=== PATIENT | female | born 1950 | race Caucasian/White ===

== ENCOUNTER 2020-03-09 20:56 | Inpatient (IN) | payer MEDICARE, MEDICAID ==
[~2020-03-09] VITALS: Ht 160 cm; Wt 68.0 kg
[2020-03-09] MEDS ORDERED: MAGNESIUM/ALUMINUM HYDROXIDE/SIMETHICONE 30ML UDC PO STA (21:56)
[2020-03-09] MEDS ORDERED: FAMOTIDINE 20MG/2ML VIAL IV STA (21:56)
[2020-03-09] MEDS ORDERED: VISCOUS LIDOCAINE 2% 15 ML UDC PO STA (21:56)
[2020-03-09] MEDS ORDERED: SODIUM CHLORIDE 0.9% 250 ML IV ONE (21:56)
[2020-03-09 22:44] LABS: BASOPHILS % 0.6 % (0.0-2.0); EOSINOPHILS % 1.3 % (0.0-5.0); HEMATOCRIT. 36.1 % (36.0-48.0); HEMOGLOBIN. 12.4 g/dL (12.0-16.0); LYMPHOCYTES % 21.5 % (20.0-50.0); MEAN CORPUSCULAR HEMOGLOBIN 31.5 pg (28.0-32.0); MEAN CORPUSCULAR VOLUME 91.6 fL (81.0-99.0); MEAN PLATELET VOLUME 7.9 fl (7.4-10.4); MONOCYTES % 5.8 % (2.0-8.0); NEUTROPHILS % 70.8 % (40.0-76.0); PLATELET 275 x1000/uL (130-400); RED BLOOD CELL COUNT 3.94 mill/uL (4.2-5.4); RED CELL DISTRIBUTION WIDTH 13.3 % (11.6-14.6)
[2020-03-09 22:52] LABS: CHLORIDE 99 mEq/L (98-107)
[2020-03-09 22:54] LABS: PROTHROMBIN TIME 10.4 sec (9.6-11.0)
[2020-03-09 22:58] LABS: CLARITY URINE CLEAR (CLEAR); COLOR URINE YELLOW (YELLOW); KETONES URINE NEGATIVE (NEGATIVE); LEUKOCYTE ESTERASE URINE 1+ (NEGATIVE); NITRITE URINE NEGATIVE (NEGATIVE); OCCULT BLOOD URINE NEGATIVE (NEGATIVE); PH URINE 7.5 (4.5-8.0); PROTEIN URINE NEGATIVE (NEGATIVE); SPECIFIC GRAVITY URINE 1.005 (1.005-1.030); UROBILINOGEN URINE 0.2 E.U./dL (0.2-1.0)
[2020-03-09] MEDS ORDERED: CEFTRIAXONE 1 G PREMIX 50 ML IV ONE (23:45)
[2020-03-10 08:40] VITALS: BP 142/68
[2020-03-10] MEDS ORDERED: ONDANSETRON HCL 4MG/2ML INJ IV PRN (09:15)
[2020-03-10] MEDS ORDERED: POTASSIUM CHLORIDE 20MEQ TABLET SR PO SCH (09:15)
[2020-03-10] MEDS: OMEPRAZOLE 20MG CAPSULE EXTENDED RELEASE PO SCH (10:14)
[2020-03-10 12:48] LABS: LDL CHOLESTEROL 52 mg/dL (5-100)
[2020-03-10 12:49] LABS: HDL CHOLESTEROL 70 mg/dL (40-59)
[2020-03-10] MEDS ORDERED: CLONIDINE 0.1MG TABLET PO PRN (13:00)
[2020-03-10] MEDS ORDERED: METF-416 PO (14:31)
[2020-03-10] MEDS: ACETAMINOPHEN 325MG TABLET PO PRN (16:20)
[2020-03-10 20:00] VITALS: BP 129/71
[2020-03-10 21:45] LABS: CLARITY URINE CLEAR (CLEAR); COLOR URINE YELLOW (YELLOW); KETONES URINE NEGATIVE (NEGATIVE); LEUKOCYTE ESTERASE URINE TRACE (NEGATIVE); NITRITE URINE NEGATIVE (NEGATIVE); OCCULT BLOOD URINE NEGATIVE (NEGATIVE); PH URINE 8.5 (4.5-8.0); PROTEIN URINE NEGATIVE (NEGATIVE); SPECIFIC GRAVITY URINE 1.008 (1.005-1.030); UROBILINOGEN URINE 0.2 E.U./dL (0.2-1.0)
[2020-03-11] VITALS: BP 139/63
[2020-03-11 04:00] VITALS: BP 122/59
[2020-03-11] MEDS: OMEPRAZOLE 20MG CAPSULE EXTENDED RELEASE PO SCH (06:27)
[2020-03-11 06:47] LABS: BASOPHILS % 0.9 % (0.0-2.0); EOSINOPHILS % 2.4 % (0.0-5.0); HEMATOCRIT. 37.1 % (36.0-48.0); LYMPHOCYTES % 22.9 % (20.0-50.0); MEAN CORPUSCULAR HEMOGLOBIN 32.3 pg (28.0-32.0); MEAN PLATELET VOLUME 8.2 fl (7.4-10.4); MONOCYTES % 6.9 % (2.0-8.0); NEUTROPHILS % 66.9 % (40.0-76.0); PLATELET 276 x1000/uL (130-400); RED BLOOD CELL COUNT 4.03 mill/uL (4.2-5.4); RED CELL DISTRIBUTION WIDTH 13.1 % (11.6-14.6)
[2020-03-11 07:23] LABS: CHLORIDE 105 mEq/L (98-107)
[2020-03-11 08:00] VITALS: BP 133/62
[2020-03-11 12:00] VITALS: BP 157/83
[2020-03-11] MEDS ORDERED: CEFTRIAXONE 1 G PREMIX 50 ML IV SCH ×2 (14:00→18:00)
[2020-03-11 16:00] VITALS: BP_SYST 169; BP_SYST 179; BP_SYST 196; BP_DIAS 79; BP_DIAS 91; BP_DIAS 95
[2020-03-11] MEDS: ACETAMINOPHEN 325MG TABLET PO PRN (17:44)
[2020-03-11 20:00] VITALS: BP_SYST 156; BP_SYST 168; BP_SYST 171; BP_DIAS 67; BP_DIAS 81; BP_DIAS 82
[2020-03-12] VITALS: BP 140/71
[2020-03-12 04:00] VITALS: BP 133/61
[2020-03-12 06:30] LABS: BASOPHILS % 0.7 % (0.0-2.0); EOSINOPHILS % 2.4 % (0.0-5.0); HEMATOCRIT. 38.7 % (36.0-48.0); HEMOGLOBIN. 13.1 g/dL (12.0-16.0); LYMPHOCYTES % 34.1 % (20.0-50.0); MEAN CORPUSCULAR HEMOGLOBIN 31.4 pg (28.0-32.0); MEAN CORPUSCULAR VOLUME 92.6 fL (81.0-99.0); MEAN PLATELET VOLUME 8.5 fl (7.4-10.4); NEUTROPHILS % 55.8 % (40.0-76.0); PLATELET 290 x1000/uL (130-400); RED BLOOD CELL COUNT 4.17 mill/uL (4.2-5.4)
[2020-03-12 06:35] LABS: CHLORIDE 105 mEq/L (98-107)
[2020-03-12 08:00] VITALS: BP 144/56
[2020-03-12] MEDS ORDERED: FAMOTIDINE 20MG TABLET PO SCH (09:00)
[2020-03-12] MEDS ORDERED: AMLO5TAB88 MT (11:09)
[2020-03-12] MEDS ORDERED: LEVO500T2 MT (11:09)
[2020-03-12] MEDS ORDERED: FAMO-135 MT (11:09)
[2020-03-12 12:00] VITALS: BP 145/60
[2020-03-12 12:41] VITALS: BP 146/60
== END 2020-03-12 15:25 | disposition home or self-care (01) | DRG 445 ==
LOC: ER 20:56 → MICUSO 23:45 → 6WST 03-10 08:45
PROVIDERS: ADMIT Internal Medicine; ATTEND Internal Medicine
DX: K80.20 Calculus of gallbladder without cholecystitis without obstruction (principal); N39.0 Urinary tract infection, site not specified; E87.1 Hypo-osmolality and hyponatremia; K21.9 Gastro-esophageal reflux disease without esophagitis; E11.9 Type 2 diabetes mellitus without complications; G90.8 Other disorders of autonomic nervous system; E87.6 Hypokalemia; I10 Essential (primary) hypertension
CPT/HCPCS: 36415; 71045; 76705; 80048; 80053; 80061; 81003; 82962; 83880; 84443; 84484; 85025; 93005; 93306; 96374; 99285; J0696; J3490; J7030

== ENCOUNTER 2020-03-19 10:29 | Emergency (ER) | payer MEDICARE, MEDICAID ==
[~2020-03-19] VITALS: Ht 152.4 cm; Wt 55.0 kg
[~2020-03-19 10:29] MED LIST: AMLO5TAB88 MT; FAMO-135 MT; LEVO500T2 MT; METF-416 PO
[2020-03-19] MEDS ORDERED: MAGNESIUM/ALUMINUM HYDROXIDE/SIMETHICONE 30ML UDC PO STA (10:53)
[2020-03-19] MEDS ORDERED: ACETAMINOPHEN 325MG TABLET PO STA (10:53)
[2020-03-19] MEDS ORDERED: FAMOTIDINE 20MG/2ML VIAL IV STA (10:53)
[2020-03-19 11:01] LABS: BASOPHILS % 0.6 % (0.0-2.0); EOSINOPHILS % 0.6 % (0.0-5.0); HEMATOCRIT. 40.1 % (36.0-48.0); HEMOGLOBIN. 14.1 g/dL (12.0-16.0); LYMPHOCYTES % 18.8 % (20.0-50.0); MEAN CORPUSCULAR HEMOGLOBIN 32.1 pg (28.0-32.0); MEAN CORPUSCULAR VOLUME 91.4 fL (81.0-99.0); MEAN PLATELET VOLUME 7.7 fl (7.4-10.4); MONOCYTES % 5.5 % (2.0-8.0); NEUTROPHILS % 74.5 % (40.0-76.0); PLATELET 374 x1000/uL (130-400); RED BLOOD CELL COUNT 4.39 mill/uL (4.2-5.4); RED CELL DISTRIBUTION WIDTH 13.1 % (11.6-14.6)
[2020-03-19 11:07] LABS: CHLORIDE 95 mEq/L (98-107)
[2020-03-19] MEDS ORDERED: IOHEXOL-300 100 ML BOTTLE ONE (11:46)
[2020-03-19] MEDS ORDERED: SODIUM CHLORIDE 0.9% 1,000 ML IV ONE (12:45)
[2020-03-19 14:10] VITALS: BP 140/67
[2020-03-19 14:34] LABS: CLARITY URINE CLEAR (CLEAR); COLOR URINE YELLOW (YELLOW); KETONES URINE NEGATIVE (NEGATIVE); LEUKOCYTE ESTERASE URINE NEGATIVE (NEGATIVE); NITRITE URINE NEGATIVE (NEGATIVE); OCCULT BLOOD URINE NEGATIVE (NEGATIVE); PROTEIN URINE NEGATIVE (NEGATIVE); SPECIFIC GRAVITY URINE 1.021 (1.005-1.030); UROBILINOGEN URINE 0.2 E.U./dL (0.2-1.0)
== END 2020-03-19 15:11 | disposition home or self-care (01) ==
LOC: ER 10:29
DX: R10.13 Epigastric pain (principal); E87.1 Hypo-osmolality and hyponatremia; E11.9 Type 2 diabetes mellitus without complications; I10 Essential (primary) hypertension; Z79.899 Other long term (current) drug therapy
CPT/HCPCS: 36415; 74177; 80053; 81003; 83690; 84484; 85025; 93005; 96361; 96374; 99285; J3490; J7030; Q9967

== ENCOUNTER 2022-05-25 15:07 | Emergency (ER) | payer MEDICARE, MEDICAID ==
[~2022-05-25] VITALS: Ht 162.6 cm; Wt 62.0 kg
[~2022-05-25 15:07] MED LIST changes: +ATOR10TA69 PO; +HYDR-4346 MT; -LEVO500T2 MT; +ONDA4TAB11 PO
[2022-05-25] MEDS ORDERED: LIDOCAINE HCL/EPINEPHRINE 1%-EPI 1:100,000 20 ML VIAL INFIL ONE (16:15)
[2022-05-25] MEDS ORDERED: SODIUM CHLORIDE 0.9% 1,000 ML IV ONE (16:15)
[2022-05-25] MEDS ORDERED: TETANUS, DIPHTHERIA, PERTUSSIS VAC/PF 0.5ML (>10YR OLD) IM ONE (16:15)
[2022-05-25 16:36] LABS: BASOPHILS % 0.3 % (0.0-2.0); EOSINOPHILS % 0.4 % (0.0-5.0); HEMATOCRIT. 32.3 % (36.0-48.0); HEMOGLOBIN. 10.8 g/dL (12.0-16.0); MEAN CORPUSCULAR HEMOGLOBIN 31.6 pg (28.0-32.0); MEAN CORPUSCULAR VOLUME 94.5 fL (81.0-99.0); MEAN PLATELET VOLUME 7.5 fl (7.4-10.4); MONOCYTES % 3.6 % (2.0-8.0); NEUTROPHILS % 86.7 % (40.0-76.0); PLATELET 321 x1000/uL (130-400); RED BLOOD CELL COUNT 3.42 mill/uL (4.2-5.4); RED CELL DISTRIBUTION WIDTH 13.3 % (11.6-14.6)
[2022-05-25 16:51] LABS: CHLORIDE 101 mEq/L (98-107)
[2022-05-25] MEDS ORDERED: IBUP-2028 MT (19:25)
[2022-05-25 21:40] VITALS: BP 130/67
== END 2022-05-25 21:40 | disposition home or self-care (01) ==
LOC: ER 15:07
DX: S01.01XA Laceration without foreign body of scalp, initial encounter (principal); E11.9 Type 2 diabetes mellitus without complications; I10 Essential (primary) hypertension; Z79.899 Other long term (current) drug therapy; W18.30XA Fall on same level, unspecified, initial encounter; Y93.89 Activity, other specified; Y92.89 Other specified places as the place of occurrence of the external cause; Y99.8 Other external cause status
CPT/HCPCS: 12002; 36415; 70450; 80053; 85025; 93005; 99285; J3490; J7030

== ENCOUNTER 2023-01-27 23:28 | Emergency (ER) | payer MEDICARE, MEDICAID ==
[~2023-01-27] VITALS: Ht 149.9 cm; Wt 62.3 kg
[~2023-01-27 23:28] MED LIST changes: +IBUP-2028 MT
[2023-01-28 01:42] LABS: BASOPHILS % 0.4 % (0.0-2.0); EOSINOPHILS % 0.2 % (0.0-5.0); HEMATOCRIT. 33.6 % (36.0-48.0); HEMOGLOBIN. 11.6 g/dL (12.0-16.0); LYMPHOCYTES % 14.8 % (20.0-50.0); MEAN CORPUSCULAR HEMOGLOBIN 31.4 pg (28.0-32.0); MEAN CORPUSCULAR VOLUME 90.4 fL (81.0-99.0); MEAN PLATELET VOLUME 7.4 fl (7.4-10.4); MONOCYTES % 4.4 % (2.0-8.0); NEUTROPHILS % 80.2 % (40.0-76.0); PLATELET 282 x1000/uL (130-400); RED BLOOD CELL COUNT 3.71 mill/uL (4.2-5.4)
[2023-01-28 01:51] LABS: CHLORIDE 98 mEq/L (98-107)
[2023-01-28] MEDS ORDERED: OMEP40CA20 MT (03:41)
[2023-01-28] MEDS ORDERED: IBUP-2028 MT (03:41)
[2023-01-28 04:00] VITALS: BP 141/65
== END 2023-01-28 04:12 | disposition home or self-care (01) ==
LOC: ER 23:28
DX: K80.50 Calculus of bile duct without cholangitis or cholecystitis without obstruction (principal); E11.9 Type 2 diabetes mellitus without complications; I10 Essential (primary) hypertension; Z98.890 Other specified postprocedural states
CPT/HCPCS: 36415; 71045; 76705; 80053; 83605; 85025; 93005; 99285

== ENCOUNTER 2023-03-23 20:43 | Emergency (ER) | payer MEDICARE, MEDICAID ==
[~2023-03-23] VITALS: Ht 149.9 cm; Wt 58.8 kg
[~2023-03-23 20:43] MED LIST changes: +OMEP40CA20 MT
[2023-03-23 21:24] LABS: BASOPHILS % 0.4 % (0.0-2.0); EOSINOPHILS % 0.8 % (0.0-5.0); HEMATOCRIT. 35.3 % (36.0-48.0); HEMOGLOBIN. 12.2 g/dL (12.0-16.0); LYMPHOCYTES % 31.4 % (20.0-50.0); MEAN CORPUSCULAR HEMOGLOBIN 31.6 pg (28.0-32.0); MEAN CORPUSCULAR VOLUME 91.6 fL (81.0-99.0); MEAN PLATELET VOLUME 7.6 fl (7.4-10.4); MONOCYTES % 9.5 % (2.0-8.0); NEUTROPHILS % 57.9 % (40.0-76.0); PLATELET 306 x1000/uL (130-400); RED BLOOD CELL COUNT 3.86 mill/uL (4.2-5.4); RED CELL DISTRIBUTION WIDTH 13.4 % (11.6-14.6)
[2023-03-23 21:46] LABS: CHLORIDE 97 mEq/L (98-107)
[2023-03-23 22:10] LABS: CLARITY URINE CLEAR (CLEAR); COLOR URINE YELLOW (YELLOW); KETONES URINE NEGATIVE (NEGATIVE); LEUKOCYTE ESTERASE URINE 1+ (NEGATIVE); NITRITE URINE NEGATIVE (NEGATIVE); OCCULT BLOOD URINE NEGATIVE (NEGATIVE); PH URINE 5.5 (4.5-8.0); PROTEIN URINE NEGATIVE (NEGATIVE); SPECIFIC GRAVITY URINE 1.015 (1.005-1.030)
[2023-03-24] MEDS ORDERED: ACETAMINOPHEN 325MG TABLET PO ONE
[2023-03-24 01:49] VITALS: BP 137/67
[2023-03-24] MEDS ORDERED: ACETAMINOPHEN 325MG TABLET PO NR (02:00)
[2023-03-24] MEDS ORDERED: FAMO-135 PO (02:14)
== END 2023-03-24 02:58 | disposition home or self-care (01) ==
LOC: ER 20:43
DX: R10.12 Left upper quadrant pain (principal); R42 Dizziness and giddiness; I10 Essential (primary) hypertension; E11.9 Type 2 diabetes mellitus without complications; Z79.899 Other long term (current) drug therapy; Z98.890 Other specified postprocedural states
CPT/HCPCS: 36415; 74176; 80053; 81003; 82010; 82962; 83605; 84484; 85025; 93005; 99285